=== PATIENT | female | born 1935 | race Caucasian/White ===

== ENCOUNTER 2016-12-14 14:44 | Emergency (ER) | payer OTHER ==
--- NOTE | ~2016-12-14 | CR169 ---
[facility] A Service [facility] RADIOLOGY TEXT RESULTS PATIENT: PÉRZE CROOK LOCATION: SED : 33 UNIT #: [id number] AGE: [address]: Timoteo Pak MD SEX: F ORDER DR: [id number] [place] [id number] E MR#: [id number] Acc #: [id number] NAME: PÉREZ CROOK : 1935 SEX: F STUDY DATE/TIME: 12/14/2016 14:52 UNIT: SED ROOM: STUDY DESCRIPTION: CR Knee 2 Views Lt Attending Physician: Timoteo Pak M.D. Ordering Physician: Timoteo Pak M.D. Primary Care Physician: Tian Newman D.O. MEDICAL IMAGING REPORT This report is preliminary unless electronic signature is present. EXAM Left knee. DATE OF EXAM 12/14/2016 HISTORY Knee pain and swelling beginning earlier this morning. COMPARISON STUDIES Comparison exam from 07/06/2016. TECHNIQUE 2 views of the knee were obtained. FINDINGS 2 views of the knee show small osteophytes along the medial joint line unchanged from the previous exam. There is no evidence of fracture or significant joint effusion. Since the previous examination, the patient has developed some lytic change in the medial femoral condyle with adjacent sclerosis that is more prominent than on the previous exam. Findings are worrisome for osteochondritis dissecans or avascular necrosis. I do not see any loose osteochondral fragments, but on the lateral view, there is some flattening of the articular surface of the medial femoral condyle at this location that was not present on this previous exam. 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 There is slight cortical flattening seen on the lateral view that is new and there is subcortical lucency that is new since the previous exam. This could be better evaluated with outpatient MRI. Also noted are generally mjkb-ah-zeclvnoi osteoarthritic changes [facility] A [facility] RADIOLOGY TEXT RESULTS PATIENT: PÉREZ CROOK LOCATION: SED : 33 UNIT #: [id number] AGE: [address]: Timoteo Pak MD SEX: F ORDER DR: predominately in the medial compartment and at the patellofemoral joint. Dictated by... Tian Bach M.D. THIS IS AN ELECTRONICALLY VERIFIED REPORT Tian Bach M.D. at 12/15/2016 8:20 AM BRE/sebastian TD: 12/14/2016 22:21 JOB #: [id number] MEDICAL IMAGING REPORT
[~2016-12-14 14:44] MED LIST: ACETAMINOPHEN PO; ADVAIR 2501 DISK W/D PO; ALLEGRA PO; ASPIRIN PO; ASPIRIN81 M2 PO; AVALIDE 300-12.1 TAB; BACTRIM DS TABL1 TA1 PO; BACTRIM DS TABL1 TA2 PO; BENAZEPRIL HCL40 MG PO; BENAZEPRIL HCTZ PO; BENAZEPRIL-HCTZ1 T18 PO; CADUET 5 MG-101 EACH PO; CADUET 5 MG/101 TAB PO; CALCIUM 500 + D1 TAB PO; CARAFATE1 G PO; CIPRO PO; COMBIVENT INH14.7 GM INH; DETROL LA PO; DITROPAN-XL5 M1 PO; DOC-Q-LACE100 MG PO; DULCOLAX5 MG PO; EC-NAPROSYN500 MG PO; FERROUS GL325 ( 36 ) PO; FISH OIL 1,0001 CAP PO; FLEXERIL PO; FLEXERIL10 MG PO; FOLIC ACID PO; GLUCOSAMINE; HYDROCHLOROTHIA25 MG PO; IMURAN50 MG PO; LEVAQUIN PO; LOPRESSOR; LOPRESSOR PO; LORTAB 5/500 TA1 TA2 PO; LOTENSIN HCT 201 TAB PO; LOTENSIN40 MG PO; METOPROLOL TAR25 MG PO; METOPROLOL/HCTZ PO; MIRALAX17 GM DOB; NAPROXEN PO; NAPROXEN SODIU220 M1 PO; NAPROXEN250 MG PO; NORCO 10-325 TA1 TAB PO; OMEGA 3 FISH OI1 CAP PO; OMEGA-31000 M1 PO; OXYBUTYNIN5 MG/BOTTL PO; PHENERGAN PO; PLAQUENIL200 MG PO; PREDNISONE PO; PRILOSEC PO; PROTONIX; PROTONIX PO; SYNTHROID125 PO; TOPROL XL 50 MG50 MG PO; TOPROL XL PO; TYLOX 5/500 CAP1 CAP PO; VICODIN 5/500 T1 TAB PO; VICODIN PO; VITAMIN D 4001 UDTAB PO; VITAMIN D1000 UNIT PO; VITAMIN D31000 UNIT PO; ZITHROMAX PO; ZOFRAN ODT4 MG PO; ZOFRAN ODT4 MG/UDTAB PO; [UNRECOGNIZED DRUG - OTHER]
== END 2016-12-14 15:54 | disposition home or self-care (01) ==
LOC: SED 14:44
DX: M87.852 Other osteonecrosis, left femur (principal); K21.9 Gastro-esophageal reflux disease without esophagitis; E78.5 Hyperlipidemia, unspecified; I10 Essential (primary) hypertension; Z90.710 Acquired absence of both cervix and uterus; Z87.891 Personal history of nicotine dependence; Z79.899 Other long term (current) drug therapy; Z88.5 Allergy status to narcotic agent
CPT/HCPCS: 73560; 96372; 99283; J1885

== ENCOUNTER 2017-04-16 20:22 | Inpatient (IN) | payer OTHER ==
[~2017-04-16] VITALS: Ht 165.1 cm; Wt 82.8 kg
--- NOTE | ~2017-04-16 | CR150 ---
[facility] A Service [facility] RADIOLOGY TEXT RESULTS PATIENT: PÉREZ CROOK LOCATION: [facility] : 33 UNIT #: [id number] AGE: [address]: Rosemarie Aldana MD SEX: F ORDER DR: [id number] [place] [id number] [place], [place] [address] [id number] I MR#: [id number] Acc #: [id number] NAME: PÉREZ CROOK. : 1935 SEX: F STUDY DATE/TIME: 04/16/2017 22:57 UNIT: [address] ROOM: [facility] STUDY DESCRIPTION: CR Hip Min 2 Views Lt Attending Physician: Rosemarie Aldana M.D. Ordering Physician: Steven Reveles D.O. Primary Care Physician: Tian Newman D.O. MEDICAL IMAGING REPORT This report is preliminary unless electronic signature is present EXAM Left hip series INDICATIONS Left hip pain after fall 1 week ago. PROCEDURE Frontal view of the pelvis lateral views left hip COMPARISON None FINDINGS No fracture or dislocation. Previous right hip replacement unremarkable. Soft tissue mineralization along the superolateral aspect of the left hip. IMPRESSION 1. Soft tissue mineralization along the superolateral aspect of the left hip, presumed chronic finding. There is no evidence for acute fracture or dislocation. 2. Unremarkable appearance of included portions of the right hip prosthesis. Dictated by... Nomi Casas M.D. THIS IS AN ELECTRONICALLY VERIFIED REPORT Nomi Casas M.D. at 04/17/2017 9:53 PM ROSID/samy TD: 04/17/2017 13:29 JOB #: [id number] [facility] A Service [facility] RADIOLOGY TEXT RESULTS PATIENT: PÉREZ CROOK LOCATION: [facility] : 33 UNIT #: [id number] AGE: [address]: Rosemarie Aldana MD SEX: F ORDER DR: MEDICAL IMAGING REPORT Page 1 of 1 COPY
--- NOTE | ~2017-04-16 | DS ---
Unit #: [id number] #: [id number] Patient: PÉREZ CROOK [id number] [address] [address] [id number] I MR#: [id number] NAME: PÉREZ CROOK. ROOM: 301 Age: 82 Sex: F Admission Date: 04/17/2017 : 1935 Discharge Date: Attending Physician: Rosemarie Aldana M.D. Primary Care Physician: Tian Newman D.O. DISCHARGE SUMMARY PRINCIPAL DIAGNOSES 1. Toxic metabolic encephalopathy, multifactorial. 2. Escherichia coli urinary tract infection. 3. Acute kidney injury on chronic kidney disease, stage 3. Baseline creatinine approximately 1.4. 4. Hypernatremia, now resolved. 5. Left renal lesion with pending CT scan. 6. Abnormal electrocardiogram with normal Cardiolite stress test. 7. Hypothyroidism, newly diagnosed. 8. Mild rhabdomyolysis. 9. Bilateral lower extremity wounds secondary to fall and subsequent deconditioning. 10. Hypertension. 11. Hyperlipidemia. 12. Hypophosphatemia. 13. Moderate protein malnutrition. 14. Dementia, likely vascular in origin, moderate. 15. Physical deconditioning. 16. Osteoporosis. CONSULTANTS 1. Dr. Schwab, Nephrology. 2. Dr. Bright, Urology. 3. Dr. Mcgraw, General Surgery. PROCEDURES 1. A two-dimensional echocardiogram on April 17, 2017 with grade 1 diastolic dysfunction. Ejection fraction not report. Valvular function (1) . 2. Chest x-ray on April 16, 2017 with no acute findings. 3. CT of the head without contrast on April 16, 2017 without acute findings. Mild generalized cerebral atrophy and generalized ventricular dilatation noted. Chronic ischemic changes in the deep white matter bilaterally. 4. X-ray of left hip on April 16, 2017 with mineralization along the superolateral aspect of the left hip. Right hip prosthesis noted. 5. Bilateral renal ultrasound on April 18, 2017 with severely hydronephrotic right kidney with dilated calices and dilated renal pelvis. This is stable since 2014. Severe cortical thinning of the right kidney noted. Left kidney is normal in size and cortical thickness. No evidence of hydronephrosis. Hypoechoic obstruction in the superior pole of the left kidney measuring 1.5 cm. 6. Cardiolite stress test which is negative for ischemia. Unit #: [id number] #: [id number] Patient: PÉREZ CROOK A CLINICAL HISTORY AND HOSPITAL COURSE Ms. Crook is an 82-year-old female brought to the emergency department by her neighbors after being found down at home and increasingly confused. In the emergency department, the patient underwent urinalysis concerning for urinary tract infection. She was also found to be in acute renal failure with a creatinine of 3.2. White blood cell count was also elevated at greater than 18,000. Patient was subsequently admitted. Ms. Crook was subsequently admitted and started on IV antibiotics for her urinary tract infection. Urine cultures have ultimately grown E. coli. Blood cultures have remained negative. She has been transitioned to oral antibiotics and completed a one-week course of therapy. In regard to patient's acute kidney injury, nephrotoxic medications were discontinued and patient was continued on IV fluids. Record review indicates a baseline creatinine of approximately 1.4. Dr. Schwab was consulted and continued management. On anticipated day of discharge this afternoon, creatinine is down to 1.4 and IV fluids have been discontinued. Will avoid nephrotoxic medications in the future. I am still awaiting voiding trial upon discontinuation of Mccarthy catheter. The patient was also found to be significantly hypernatremia upon presentation, likely due to the fact she had been down at home for several days. Admission sodium was 158, now sodium was down to 142. Oral water intake has been encouraged. The patient, as noted above, was significantly confused upon presentation. I think this is multifactorial including her urinary tract infection, her hypernatremia, and probably some underlying dementia. She is now awake, alert, answering questions and appropriate but still remains unoriented to time. According to her neighbor, she does have some difficulty with short-term memory at home that has been noted. I suspect patient is back at her baseline. Renal ultrasound while evaluating the patient's acute kidney injury did reveal left renal mass for which Dr. Bright was consulted. CT scan of the abdomen and pelvis is still currently pending, but assuming this does not appear to be a cancerous lesion, I anticipate no further workup. The patient did have an abnormal EKG upon presentation with significant ST segment depression. Cardiology was consulted and patient underwent Cardiolite stress test which is unremarkable. No further cardiac workup planned. The patient was found to have several wounds on her lower extremities with eschar likely secondary to her being down in the same position for a day or two. Surgery was consulted and local wound care only at this time. Anticipating, again if CT scan negative, I think patient can be discharged to rehab today. DISCHARGE CONDITION Stable. DISCHARGE STATUS Discharge to subacute rehab. Unit #: [id number] #: [id number] Patient: PÉREZ CROOK DISCHARGE MEDICATIONS 1. Zofran 4 mg p.o. q.4 hours p.r.n. for nausea and vomiting. 2. Tylenol 325 mg p.o. q.4 hours p.r.n. for pain. 3. Bactroban to wounds on the legs topically b.i.d. 4. Norvasc 5 mg p.o. daily. 5. Metoprolol tartrate 25 mg b.i.d. 6. Colace 100 mg p.o. b.i.d. p.r.n. constipation. 7. Omnicef 300 mg b.i.d. through April 23, 2017. 8. Ferrous gluconate 325 mg p.o. daily. 9. Santyl ointment topically b.i.d. to lower extremity wounds. 10. Aspirin 81 mg daily. 11. Phos-Nak packet 500 mg p.o. b.i.d. to stop after doses on April 21, 2017. 12. Levothyroxine 125 mcg p.o. daily. 13. Vitamin D 1000 units p.o. daily. DISCHARGE INSTRUCTIONS 1. The patient was instructed to follow a heart healthy diet. 2. She can increase her activity as tolerated. FOLLOWUP 1. The patient will follow up with Dr. Schwab in four to six weeks. 2. Followup with urology pending CT scan. 3. Patient is to follow up with her primary care provider, Dr. Tian Newman, upon discharge from rehab. Dictated by... Rosemarie Aldana M.D. [facility]/thaddeus TD: 04/20/2017 11:23 JOB #: [id number] DISCHARGE SUMMARY Page 1 of 1 X Rosemarie Aldana MD X DISCHARGE SUMMARY
--- NOTE | ~2017-04-16 | CR72 ---
[facility] A Service of [facility] RADIOLOGY TEXT RESULTS PATIENT: PÉREZ CROOK LOCATION: [facility] 301- : 33 UNIT #: [id number] AGE: [address]: Rosemarie Aldana MD SEX: F ORDER DR: [id number] [facility] [address] [facility]. [place], [place] [address] [id number] I MR#: [id number] Acc #: [id number] NAME: PÉREZ CROOK : 1935 SEX: F STUDY DATE/TIME: 04/16/2017 21:20 UNIT: [address] ROOM: [facility] STUDY DESCRIPTION: CR Chest Single View Portable Attending Physician: Rosemarie Aldana M.D. Ordering Physician: Steven Reveles D.O. Primary Care Physician: Tian Newman D.O. MEDICAL IMAGING REPORT This report is preliminary unless electronic signature is present EXAM Portable chest HISTORY Shortness of chest pain today. FINDINGS The cardiac size and pulmonary vascularity are normal. Mildly tortuous descending thoracic aorta. Mild pleural thickening in the lung apices. IMPRESSION No active disease Dictated by... Pedro Pierre M.D. THIS IS AN ELECTRONICALLY VERIFIED REPORT Pedro Pierre M.D. at 04/17/2017 2:23 PM CLAUDIO/samy TD: 04/17/2017 13:07 JOB #: [id number] MEDICAL IMAGING REPORT Page 1 of 1 COPY
--- NOTE | ~2017-04-16 | HP ---
Unit #: [id number] #: [id number] Patient: PÉREZ CROOK [id number] [address] [address] [id number] I MR#: [id number] NAME: PÉREZ CROOK. ROOM: 301 Age: 82 Sex: F Admission Date: 04/17/2017 : 1935 Attending Physician: Mariama Millan M.D. Primary Care Physician: Tian Newman D.O. HISTORY AND PHYSICAL CHIEF COMPLAINT Acute on chronic kidney disease, dehydration, urinary tract infection, hypernatremia. HISTORY This 82-year-old female with rheumatoid arthritis, hypothyroidism, hypertension, is admitted for dehydration. The patient was found by her neighbor down on the floor. It is uncertain how long the patient has been laying on the floor, as she does not recall what occurred. I am told that she was last seen normal by the neighbor about a week ago. She was brought to this emergency department where she has bruises, and abrasions. She was initially tachycardic. Labs are consistent with acute on chronic kidney injury with dehydration, hypernatremia. She is also found to have a UTI. In the ER she was boluses with a liter of saline, given a gram of Rocephin, and given water to drink. She herself is confused. PAST MEDICAL HISTORY 1. Previous history of hypothyroidism, per old records. 2. Hyperlipidemia. 3. Hypertension. 4. Rheumatoid arthritis. 5. Chronic lung disease. 6. Chronic kidney disease with a baseline creatinine of about 1.3. 7. Negative Cardiolite stress test with normal ejection fraction 2008. 8. EGD revealing a small hiatal hernia, diffuse gastritis and large ulcers, 07/2015. 9. Colonoscopy 06/2005 showing diverticular disease and internal hemorrhoids. 10. Right total hip replacement. 11. Total abdominal hysterectomy. ALLERGIES Codeine. HOME MEDICATIONS Uncertain. FAMILY HISTORY CAD and diabetes mellitus. SOCIAL HISTORY The patient lives alone. She smoked one pack per day of tobacco from age Unit #: [id number] #: [id number] Patient: PÉREZ CROOK 16 until about 15 years ago. Does not drink alcohol. She is originally from [facility] [place]. REVIEW OF SYSTEMS Difficult to obtain as patient is confused. PHYSICAL EXAMINATION GENERAL: Pleasantly confused, ill-appearing 82-year-old female currently in no acute distress. VITAL SIGNS: Temperature 96, pulse 126, respirations 24, blood pressure 120/76, O2 saturation was 98% on 4 L, currently is 92% on room air. HEENT: Eyes - PERRLA, extraocular muscles are intact. Pharynx - dry mucosal membranes. NECK: Supple without adenopathy or thyromegaly. CHEST: Diminished breath sounds but clear. CARDIAC: Tachy S1 and S2 without murmur. ABDOMEN: Bowel sounds are present. Patient is tender over the suprapubic region without rebound or guarding. No hepatosplenomegaly. EXTREMITIES: Without edema. Pedal pulses are present but diminished. Abrasions and bruising are noted with a round just below her right knee with early eschar formation. Bruising over the coccyx region, reddened, but no open areas. NEUROLOGIC: The patent is oriented to person only. Her cranial nerves are intact. She has equal strength throughout but is extremely weak on exam. Is unable to even turn over without help. DIAGNOSTIC STUDIES LABORATORY STUDIES: Hematocrit is 55, white blood count is 18.4, normal MCV and platelet count. SMA 12 - glucose 130, BUN 190, creatinine 3.2, up from a BUN of 20, creatinine 1.1 last year. Sodium 158, chloride 119, AST 80, ALT 79, alk phos 103, CPK 1400. Acetaminophen, salicylate, and alcohol levels are all negligible. Lactic acid is 2. Troponin 0.09. Urinalysis - positive leukocyte esterase, 5-10 red cells, innumerable white cells, 4+ bacteria, no squamous cells. CARDIOLOGY STUDIES: EKG - sinus tachycardia, rate 116. There is new T wave inversions noted inferiorly and laterally. APCs are noted. LVH. IMAGING STUDIES: Head CT - no acute disease. Chest x-ray - no acute disease. X-ray of the left hip no fracture. ASSESSMENT 1. Patient was found down. She is dehydrated with acute on chronic kidney disease and hypernatremia. Unknown time she was down. 2. Abnormal EKG. 3. Mild rhabdomyolysis. 4. UTI. 5. Wound noted below the right knee with early eschar. 6. Rheumatoid arthritis. 7. Chronic lung disease. 8. Likely some dementia. 9. Hyperlipidemia. 10. Hypertension. 11. History of hypothyroidism. 12. Poor data base. Patient herself is confused. Family is not present. Unit #: [id number] #: [id number] Patient: PÉREZ CROOK PLANS 1. Aggressive IV fluids. 2. Check TSH, B12, and repeat labs in the morning. 3. Serial cardiac enzymes, EKG, obtain echo. Start aspirin and low dose Lopressor. 4. [facility] to check right knee wound. 5. DVT prophylaxis. 6. Antibiotics pending urine culture. 7. When improved will need physical therapy to see to assess ambulation. 8. Better history when family arrives. Dictated by Mariama Millan M.D. AML/ts TD: 04/17/2017 05:59 JOB #: [id number] HISTORY AND PHYSICAL Page 1 of 1 X Mariama Millan MD X HISTORY AND PHYSICAL
--- NOTE | ~2017-04-16 | CO ---
Unit #: [id number] #: [id number] Patient: PÉREZ CROOK [id number] [address] [place], [place] [address] [id number] I MR#: [id number] NAME: PÉREZ CROOK. ROOM: 301 Age: 82 Sex: F Admission Date: 04/17/2017 : 1935 Attending Physician: Rosemarie Aldana M.D. Primary Care Physician: Tian Newman D.O. Consultation Date: 04/20/2017 CONSULTATION REPORT REASON FOR CONSULTATION Possible renal mass. HISTORY OF PRESENT ILLNESS This 82-year-old woman who was admitted after a fall and sustained multiple contusions of her extremities. She is noted to have chronic kidney disease and has been seen by Nephrology. On ultrasound, there is a question of a 15 mm mass in the upper pole of the left kidney. She was also treated for suspected urinary tract infection on admission. She is now improved and ready for transfer to rehab. She denies a history of urinary infections. She denies any urinary symptoms whatsoever. No history of kidney stones or gross hematuria. She has no flank pain. She was not knowledgeable of the status of her right kidney, which is completely atrophic on CT. PAST MEDICAL HISTORY Rheumatoid arthritis, chronic lung disease, chronic kidney disease, baseline creatinine 1.3, hyperlipidemia, hypertension, history of hypothyroidism. PAST SURGICAL HISTORY Right total hip arthroplasty, total abdominal hysterectomy. DISCHARGE MEDICATIONS Zofran, Tylenol, Bactroban, Norvasc, metoprolol, Colace, Omnicef, ferrous gluconate, Santyl, low-dose aspirin, Phos-Nak packet, levothyroxine, vitamin D. ALLERGIES Codeine. FAMILY HISTORY Noncontributory. SOCIAL HISTORY Stopped smoking 15 years ago after over 50 years of one pack per day. Does not drink alcohol. REVIEW OF SYSTEMS Thought unreliable due to confusion. PHYSICAL EXAMINATION GENERAL: The patient is sitting up with multiple abrasions. Awake, Unit #: [id number] #: [id number] Patient: PÉREZ CROOK alert, comfortable. Requesting discharge. ABDOMEN: Large, full, soft. No masses or tenderness appreciated. EXTREMITIES: Knee contusion, knee scars. NEUROLOGIC: Grossly intact. SKIN: [place]. HEENT: Unremarkable. LUNGS: Clear. CARDIAC: Rate and rhythm regular. DIAGNOSTIC STUDIES LABORATORY RESULTS: Include urinalysis, 1+ bacteria, 100 to 200 wbc's, 5 to 10 red cells. Urine culture, multisensitive including temazepam, sulfa, ampicillin, ceftriaxone, nitrofurantoin, creatinine improved from 2.4 to 1.4 baseline, BUN 49. IMAGING STUDIES: Renal ultrasound as noted suspicious for hypoechoic lesion in the upper pole of left kidney without flow by Doppler. This was not appreciated on CT scan from 07/16/2015. I have repeated a CT scan, and although the report is pending, it is similar to the one from 2015 and does not show the lesion suspected by ultrasound either. Note that there was a completely atrophic kidney consistent with longstanding right ureteropelvic junction obstruction. IMPRESSION Solitary left kidney. No evidence of renal mass on further inspection. The patient reassured. We will cancel initial office followup and see her again only on an as-needed basis. Thank you, Rosemarie, for the consultation. Dictated by... Tian Bright M.D. [facility]/abhinav TD: 04/21/2017 06:31 JOB #: [id number] CC: Rosemarie Aldana M.D. CONSULTATION REPORT Page 1 of 1 X Tian Bright MD X CONSULTATION REPORT
--- NOTE | ~2017-04-16 | CT7 ---
[facility] A Service [facility] RADIOLOGY TEXT RESULTS PATIENT: PÉREZ CROOK LOCATION: [facility] : 33 UNIT #: [id number] AGE: [address]: Rosemarie Aldana MD SEX: F ORDER DR: [id number] [place] [id number] [facility]. [place], [place] [address] [id number] I MR#: [id number] Acc #: [id number] NAME: PÉREZ CROOK. : 1935 SEX: F STUDY DATE/TIME: 04/20/2017 12:36 UNIT: [facility] PCU ROOM: [facility] STUDY DESCRIPTION: CT Abdomen Wo Cont Attending Physician: Rosemarie Aldana M.D. Ordering Physician: Socorro Schwab M.D. Primary Care Physician: Tian Newman D.O. MEDICAL IMAGING REPORT This report is preliminary unless electronic signature is present EXAM CT of the abdomen without contrast INDICATIONS Renal mass seen on recent ultrasound TECHNIQUE CT of the abdomen only was performed without contrast. Coronal and sagittal reformatted images were obtained. This CT exam was performed with one or more of the following radiation dose reduction techniques: automatic exposure control, adjustment of mA and/or kV according to patient size, and iterative reconstruction. COMPARISON STUDIES Comparison with renal ultrasound 04/18/[address] abdomen and pelvis from 07/16/2015. FINDINGS The lung bases are clear. Tiny hiatal hernia. The liver, gallbladder and spleen are unremarkable. The left kidney is unremarkable. 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 This is not significantly changed. There is no definite renal mass. The adrenal glands are unremarkable. The pancreas is unremarkable. The bone windows show degenerative changes of the lumbar spine. IMPRESSION 1. No definite renal mass. 2. Stable severe right hydronephrosis with cortical thinning most consistent with a right UPJ obstruction. [facility] A Service [facility] RADIOLOGY TEXT RESULTS PATIENT: PÉREZ CROOK LOCATION: [facility] : 33 UNIT #: [id number] AGE: [address]: Rosemarie Aldana MD SEX: F ORDER DR: Dictated by... Ramon Dean M.D. THIS IS AN ELECTRONICALLY VERIFIED REPORT Ramon Dean M.D. at 04/20/2017 3:51 PM Dante TD: 04/20/2017 15:25 JOB #: [id number] MEDICAL IMAGING REPORT Page 1 of 1 COPY
--- NOTE | ~2017-04-16 | TH ---
Unit #: [id number] #: [id number] Patient: PÉREZ CROOK [id number] [address] [place], [place] [address] [id number] I MR#: [id number] NAME: PÉREZ CROOK. : 1935 SEX: F STUDY DATE/TIME: 04/19/2017 UNIT: C3A PCU ROOM: 301 STUDY DESCRIPTION: Stress nuclear study Attending Physician: Rosemarie Aldana M.D. Primary Care Physician: Tian Newman D.O. CARDIOLOGY REPORT EXAM Stress nuclear and ECG combined. INDICATION Chest pain, syncope, inability to exercise adequately for the diagnosis of obstructive coronary disease. SUMMARY The patient was given Lexiscan intravenously while at rest as well as Tc-99m Cardiolite, 11.89 and 32.6 mCi, at rest and stress respectively. Appropriate views were obtained. FINDINGS The resting ECG is abnormal. There is 0.5 to [address] depression in leads II, III, aVF, V4 through V6 with upgoing T waves. With stress, there are single PVCs noted and a slight depression of the ST segments but not diagnostic past the resting depression. Heart rate increased from 67 to 90 and blood pressure decreased from 149/76 to 114/63. There was no chest pain. Planar images demonstrate no significant patient motion either at rest or stress. There is significant tissue attenuation at rest but not with stress. There is no significant lung uptake, LV or RV enlargement. End-diastolic is 70 mL, ejection fraction 65% with normal wall motion abnormality. Summed stress score is 4. Summed difference score is 3. Changes involve primarily border detection at the basal inferior wall. Perfusion images demonstrate slight rotation between rest and stress. There is diaphragmatic artifact but otherwise no significant changes between rest and stress. There is chest wall attenuation artifact mainly with rest and intestinal artifact mainly with stress. IMPRESSION 1. Myocardial perfusion scan shows no ischemia. Changes in in the inferior wall appear to be more related to diaphragmatic artifact. 2. Abnormal nondiagnostic stress ECG. 3. Normal LV size and ejection fraction. Dictated by... Kody Mistry M.D. PJRomina/bernabe Unit #: [id number] #: [id number] Patient: PÉREZ CROOK TD: 04/20/2017 13:15 JOB #: [id number] CARDIOLOGY REPORT Page 1 of 1 X Kody Mistry MD CARDIOLOGY REPORT
--- NOTE | ~2017-04-16 | US77 ---
[facility] A Service of [facility] RADIOLOGY TEXT RESULTS PATIENT: PÉREZ CROOK LOCATION: [facility] 301- : 33 UNIT #: [id number] AGE: [address]: Rosemarie Aldana MD SEX: F ORDER DR: [id number] [facility] [address] [facility]. [place], [place] [address] [id number] MR#: [id number] Acc #: [id number] NAME: PÉREZ CROOK. : 1935 SEX: F STUDY DATE/TIME: 04/18/2017 12:19 UNIT: C3A PCU ROOM: 301 STUDY DESCRIPTION: US Kidney Bilateral Complete Attending Physician: Rosemarie Aldana M.D. Ordering Physician: Rosemarie Aldana M.D. Primary Care Physician: Tian Newman D.O. MEDICAL IMAGING REPORT This report is preliminary unless electronic signature is present EXAM Complete bilateral renal ultrasound COMPARISON CT abdomen and pelvis dated July 16, 2016. INDICATIONS 82-year-old female with acute renal insufficiency. GFR of 21, creatinine of 2.1 and BUN of 133. FINDINGS The right kidney is noted to be severely hydronephrotic with marked diffuse cortical thinning on CT of July 2015. Large cystic structure is measured in the right upper quadrant of the abdomen and most likely represents the dilated renal pelvis and calyces. Urinary bladder is unremarkable. The left kidney appears normal, aside for a hypoechoic structure in the superior pole. The left kidney measures 10.3 cm in length and demonstrates normal cortical thickness. The hypoechoic structure in the superior pole measures 1.5 cm x 1.6 cm x 1.4 cm and was not definitely appreciated on CT of July 16, 2016. This does not have internal color flow. No associated shadowing mural calcifications are seen. IMPRESSION 1. Right kidney is severely hydronephrotic and is completely replaced by dilated calyces and a dilated renal pelvis, unchanged from July 16, 2015. There is marked severe cortical thinning and the right kidney is likely nonfunctional. This may represent a chronic ureteropelvic junction obstruction causing these findings in the right kidney. 2. The left kidney is normal in size and cortical thickness. There is no left hydronephrosis. A hypoechoic structure superior pole of the left kidney measuring up to 1.5 cm which does not have internal color flow. [facility] A Service of [facility] RADIOLOGY TEXT RESULTS PATIENT: PÉREZ CROOK LOCATION: [facility] 301-01 : 33 UNIT #: [id number] AGE: [address]: Rosemarie Aldana MD SEX: F ORDER DR: This is not definitely seen on noncontrast CT of July 16, 2015 and could possibly have been not visible due to lack of IV contrast. This may represent a proteinacious cyst. Consider followup ultrasound of the left kidney in [address] to document stability. CT abdomen with and without IV contrast could also be performed now, but this may not be prudent given the patient's renal function. Alternatively, MRI with and without IV contrast could be performed, if definitive characterization is now desired. Dictated by... Momo Dutta M.D. THIS IS AN ELECTRONICALLY VERIFIED REPORT Momo Dutta M.D. at 04/23/2017 10:28 PM SUKI/saige TD: 04/18/2017 21:17 JOB #: [id number] MEDICAL IMAGING REPORT Page 1 of 1 COPY
--- NOTE | ~2017-04-16 | EKG ---
PATIENT: PÉREZ CROOK UNIT #: [id number] Ventricular Rate: 64 BPM Atrial Rate: 64 BPM P-R Interval: 152 ms QRS Duration: 76 ms Q-T Interval: 462 ms QTC Calculation(Bezet): 476 ms P [place]: 78 degrees Calculated R [place]: 69 degrees Calculated T [place]: -97 degrees Diagnosis Line: Normal sinus rhythm Diagnosis Line: ST and T wave abnormality, consider inferior Diagnosis Line: ischemia Diagnosis Line: ST and T wave abnormality, consider anterolateral Diagnosis Line: ischemia Diagnosis Line: Prolonged QT Diagnosis Line: Abnormal ECG Diagnosis Line: When compared with ECG of 16-APR-2017 20:55, Diagnosis Line: Premature atrial complexes are no longer Present Diagnosis Line: Vent. rate has decreased BY 52 BPM Diagnosis Line: ST no longer depressed in Inferior leads Diagnosis Line: ST no longer depressed in Anterior leads Diagnosis Line: Confirmed by NETTIE MANRIQUE MD ([id number]) on Diagnosis Line: 04/20/2017 7:27:05 AM INTERPRETING MD: BURTON LIRIANO
--- NOTE | ~2017-04-16 | CO ---
Unit #: [id number] #: [id number] Patient: PÉREZ CROOK [id number] [address] [place], [place] [address] [id number] I MR#: [id number] NAME: PÉREZ CROOK. ROOM: 301 Age: 82 Sex: F Admission Date: 04/17/2017 : 1935 Attending Physician: Rosemarie Aldana M.D. Primary Care Physician: Tian Newman D.O. Consultation Date: 04/18/2017 CONSULTATION REPORT REASON FOR CONSULTATION Abnormal EKG. HISTORY OF PRESENT ILLNESS The patient is an 82-year-old female who does not have a supervisor color making here. She states she has never had a myocardial infarction. Back in November of 2008, she had an adenosine Cardiolite stress test which showed no ischemia and EF of 60%, and a 2D echocardiogram that showed impaired relaxation. Additional past medical history includes hypertension, hyperlipidemia, rheumatoid arthritis, hypothyroidism, chronic lung disease, chronic kidney disease and she is a reformed smoker. The patient was apparently found down by her neighbor on the floor. It is uncertain how long the patient had been laying on the floor and the patient does not recall the events that occurred. At the time of my evaluation, the patient is oriented times person but she is confused as to the events that brought her into the hospital. She denies any complaints of shortness of breath or chest pain. She denies any nausea, vomiting, fever or chills. In the emergency department, laboratory results are consistent with acute on chronic kidney injury with dehydration and hypernatremia. She was also found to have a urinary tract infection. She was given normal saline liter bolus and a gram of IV Rocephin. Troponin was found to be 0.09. EKG shows normal sinus rhythm with ST and T wave abnormalities in the inferior and anterolateral leads. PAST MEDICAL HISTORY 1. November 2008 adenosine Cardiolite stress test shows no ischemia with an EF of 60%. 2. November 2008 echo shows impaired LV relaxation. 3. Hypertension. 4. Hyperlipidemia. 5. Osteoarthritis. 6. Hypothyroidism. 7. Chronic lung disease. 8. Chronic kidney disease. PAST SURGICAL HISTORY 1. EGD in July 2015, shows small hiatal hernia, diffuse gastritis and large ulcers. 2. Colonoscopy in June 2005 shows diverticular disease and internal hemorrhoids. 3. Right total hip replacement. Unit #: [id number] #: [id number] Patient: PÉREZ CROOK 4. Hysterectomy. ALLERGIES Codeine. HOME MEDICATIONS Unknown at this time. FAMILY HISTORY Per the H and P, the patient has a family history of coronary artery disease and diabetes. SOCIAL HISTORY The patient lives alone and is a reformed smoker. She does not drink alcohol. She is originally from [facility]. REVIEW OF SYSTEMS A ten point review of systems was attempted. However, due to the patient's current mental status, I was unable to complete a full twelve point review of systems. Again, patient denied any nausea, vomiting, fever, chills, chest pain or shortness of air. PHYSICAL EXAMINATION GENERAL: The patient is awake, in no acute distress. VITAL SIGNS: Temperature 97.5, heart rate 74, respirations 16, blood pressure 134/62. She is oxygenating 97%. HEENT: Head is atraumatic, normocephalic. Pupils are equal, round and reactive. Extraocular movements are intact. No discharge from ears or nares. NECK: Supple. Trachea is midline. No thyromegaly or lymphadenopathy appreciated. Normal carotid upstrokes. CHEST: Lungs are diminished. No wheezes, rales or rhonchi. CARDIOVASCULAR: S1, S2. Regular rate and rhythm. No murmurs, rubs or gallops appreciated. ABDOMEN: Soft, nontender, nondistended. Bowel sounds are positive in all four quadrants. No hepatosplenomegaly is appreciated. EXTREMITIES: No clubbing, edema or cyanosis. SKIN: Warm, dry. She does have some bruising noted over her coccyx region and around her right knee. NEUROLOGIC: The patient is oriented to person only. She is pleasant and conversant. DIAGNOSTIC STUDIES CARDIOVASCULAR: EKG shows sinus tachycardia with T wave inversions in the inferior lateral leads. IMAGING: CT scan of the head showed no acute disease. Chest x-ray showed nothing acute. X-ray of the left hip showed no fracture. LABORATORY: White blood cells 9.7, hemoglobin 12.9, hematocrit 40.6, platelets 202, sodium 144, potassium 3.2, chloride 114, CO2 22, BUN 133, creatinine 2.1, glucose 94, magnesium 2.6, troponin 0.09. ASSESSMENT 1. Abnormal EKG. Unit #: [id number] #: [id number] Patient: PÉREZ CROOK 2. Toxic metabolic encephalopathy. 3. Urinary tract infection. 4. Mild rhabdomyolysis. 5. Hypertension. 6. Hyperlipidemia. 7. Normal stress test in 2008. 8. Acute on chronic kidney disease. 9. Likely dementia. 10. Reformed tobaccoism. PLAN At this time, will trend cardiac enzymes q.6 hours x2 and obtain a 2D echocardiogram regarding the abnormal EKG and evaluate her ejection fraction. Will do a BMP, mag and lipid panel in the morning. Will have Dr. Mistry review patient's EKGs to see if patient needs further workup. Dictated by... Leslie Shah A.P.R.N. for Kody Mistry M.D. AM/liz TD: 04/18/2017 11:39 JOB #: [id number] CONSULTATION REPORT Page 1 of 1 X Leslie Shah APRN X CONSULTATION REPORT
--- NOTE | ~2017-04-16 | EKG ---
PATIENT: PÉREZ CROOK UNIT #: [id number] Ventricular Rate: 116 BPM Atrial Rate: 116 BPM P-R Interval: 128 ms QRS Duration: 80 ms Q-T Interval: 352 ms QTC Calculation(Bezet): 489 ms P [place]: 29 degrees Calculated R [place]: 58 degrees Calculated T [place]: -116 degrees Diagnosis Line: Sinus tachycardia with Premature atrial complexes Diagnosis Line: Left ventricular hypertrophy with repolarization Diagnosis Line: abnormality Diagnosis Line: Abnormal ECG Diagnosis Line: No previous ECGs available Diagnosis Line: Confirmed by NETTIE MANRIQUE MD ([id number]) on Diagnosis Line: 04/17/2017 3:52:31 PM INTERPRETING MD: BURTON LIRIAON
--- NOTE | ~2017-04-16 | DS ---
Unit #: [id number] #: [id number] Patient: PÉREZ CROOK [id number] [address] [address] [id number] I MR#: [id number] NAME: PÉREZ CROOK ROOM: 301 Age: 82 Sex: F Admission Date: 04/17/2017 : 1935 Discharge Date: 04/20/2017 Attending Physician: Rosemarie Aldana M.D. Primary Care Physician: Tian Newman D.O. DISCHARGE SUMMARY ADDENDUM PROCEDURES (addition) CT scan of abdomen and pelvis which did not reveal any renal mass. 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 HOSPITAL COURSE CT scan was reviewed and is negative for mass. No further workup necessary. I have discussed patient's clinical condition with her son who is agreeable to rehab. Plan is for patient to be discharged to rehab and then ultimately for her to reside with her daughter in [place], [place], if situation permits. I will note son confirms patient does have some dementia. It has been progressive over the last two to three years. The patient will be discharged to rehab today. Discharge meds are as previously dictated. Dictated by... Rosemarie Aldana M.D. CARMENCITA/bernabe TD: 04/20/2017 14:10 JOB #: [id number] DISCHARGE SUMMARY Page 1 of 1 X Rosemarie Aldana MD X DISCHARGE SUMMARY
--- NOTE | ~2017-04-16 | ST ---
Unit #: [id number] #: [id number] Patient: PÉREZ CROOK [id number] [address] [address] [id number] I MR#: [id number] NAME: PÉREZ CROOK : 1935 SEX: F STUDY DATE/TIME: 04/19/2017 UNIT: C3A PCU ROOM: 301 STUDY DESCRIPTION: Stress test Attending Physician: Rosemarie Aldana M.D. Primary Care Physician: Tian Newman D.O. CARDIOLOGY REPORT EXAM Stress test. FINDINGS Result text under nuclear order number. Please see this order for result text. Dictated by... Richie Gross/bernabe TD: 04/20/2017 13:26 JOB #: [id number] CARDIOLOGY REPORT Page 1 of 1 X Kody Mistry MD CARDIOLOGY REPORT
--- NOTE | ~2017-04-16 | CT71 ---
[facility] A Service [facility] RADIOLOGY TEXT RESULTS PATIENT: PÉREZ CROOK LOCATION: [facility] : 31 UNIT #: [id number] AGE: [address]: Rosemarie Aldana MD SEX: F ORDER DR: [id number] [facility] [address] [facility]. [place], [place] [address] [id number] I MR#: [id number] Acc #: [id number] NAME: PÉREZ CROOK : 1935 SEX: F STUDY DATE/TIME: 04/16/2017 21:50 UNIT: C3A PCU ROOM: [address] [place] [address] DESCRIPTION: CT Head Wo Contrast Attending Physician: Rosemarie Aldana M.D. Ordering Physician: Steven Reveles D.O. Primary Care Physician: Tian Newman D.O. MEDICAL IMAGING REPORT This report is preliminary unless electronic signature is present REVISED REPORT EXAM CT brain without contrast. HISTORY Headache today. Fell today. TECHNIQUE This CT exam was performed with one or more of the following radiation dose reduction techniques: automatic exposure control, adjustment of mA and/or kV according to patient size, and iterative reconstruction. FINDINGS CT brain without contrast demonstrates no intracranial hemorrhage, mass or edema. No midline shift or focal atrophy or extraaxial fluid collection. Mild generalized cerebral atrophy and mild compensatory generalized ventricular dilatation. There are also mild chronic ischemic changes in the deep white matter bilaterally. IMPRESSION No acute findings. Dictated by... Pedro Pierre M.D. THIS IS AN ELECTRONICALLY VERIFIED REPORT Pedro Pierre M.D. at 04/17/2017 2:23 PM DFL/sarah TD: 04/17/2017 13:17 JOB #: [id number] CC: Francesco/invision Please Delete [facility] A Service [facility] RADIOLOGY TEXT RESULTS PATIENT: PÉREZ CROOK LOCATION: [facility] : 31 UNIT #: [id number] AGE: [address]: Rosemarie Aldana MD SEX: F ORDER DR: MEDICAL IMAGING REPORT Page 1 of 1 COPY
--- NOTE | ~2017-04-16 | CO ---
Unit #: [id number] #: [id number] Patient: PÉREZ CROOK [id number] [facility]. [address] [place], [place] [address] [id number] I MR#: [id number] NAME: PÉREZ CROOK. ROOM: 301 Age: 82 Sex: F Admission Date: 04/17/2017 : 1935 Attending Physician: Rosemarie Aldana M.D. Primary Care Physician: Tian Newman D.O. Consultation Date: 04/18/2017 CONSULTATION REPORT REASON FOR CONSULTATION Renal insufficiency. Thank you very much for asking me to see this patient in consultation. HISTORY OF PRESENT ILLNESS Ms. Pérez Crook is an 82-year-old white female, who presented to the hospital here on 04/17/2017, apparently being found down at home of unknown reason, unknown length, presented to the emergency room, noted to have an increased BUN and creatinine of 190 and 3.2 with CPK of 1399 and sodium of 158. She was started on IV fluids. Today, her BUN and creatinine are down to 133 and 2.1, it was noted that sodium down to 144, and I was asked to see the patient. The patient currently is arousable, but she is confused. She is complaining of back pain only. She denies any chest pain or shortness of breath. She denies taking any nonsteroidals and again she is confused. The rest of her history is from the chart and other notes. PAST MEDICAL HISTORY History of rheumatoid arthritis, history of hypothyroidism, history of hypertension, history of chronic lung disease, history of hyperlipidemia, history of gastritis and ulcers in 2014, history of right hip replacement, history of total abdominal hysterectomy, history of degenerative disk disease. ALLERGIES Her allergies include codeine. SOCIAL HISTORY Long positive smoking. No alcohol. MEDICATIONS At home include benazepril and hydrochlorothiazide, Toprol, Protonix, FeSO4, [place], Zofran, Carafate, and Synthroid aspirin, Rocephin, Lopressor, Zocor, and subcu heparin. REVIEW OF SYSTEMS As mentioned in HPI. Really unable to obtain any. FAMILY HISTORY Unable to obtain. PHYSICAL EXAMINATION GENERAL: She is arousable, but somnolent and confused. Unit #: [id number] #: [id number] Patient: PÉREZ CROOK VITAL SIGNS: T-max 98.0, pulse is 63 to 75, blood pressure 108 to 158 over 50s to 80s, HEENT: She is normocephalic and atraumatic. Pupils are equal, round, and reactive to light. Extraocular muscles are intact. Mouth is dry. No erythema. No exudate. NECK: Supple. No adenopathy. CARDIAC: Regular rate and rhythm without a rub. No S3 or S4. LUNGS: Sound fairly clear bilaterally. No wheezes, rhonchi, or rales. ABDOMEN: Overweight, bowel sounds positive, some mild diffuse tenderness. No rebound or guarding. EXTREMITIES: She has no lower extremity swelling. SKIN: No rashes. NEURO: She is able to move all extremities, but confused. : She has a diaper on. DIAGNOSTIC STUDIES LABORATORY RESULTS: Upon admission, she has a sodium of 158, potassium 3.7, chloride is 119, bicarb 26, BUN of 190,creatinine 3.2, glucose of 130, CPK of 1399. UA shows specific gravity of 1.018, 1+ protein, 5 to 10 rbc's, too numerous to count wbc's, 4+ bacteria. Blood cultures and urine cultures are pending. Her laboratory data today showed a sodium of 144, potassium is 3.2, chloride is 114, bicarb 22, BUN is down to 133, creatinine 2.1, glucose 94. Albumin 3.9. CPK is down to 368. TSH is 17.53, calcium is 8.1. On 02/16/2016 creatinine was 1.1. On 01/05/2016 creatinine was 1.5. Over the last 5 years, the creatinine is ranging between 1.1 and 2.3 in the chart. IMAGING STUDIES: Chest x-ray was negative. CT of the head was negative. ASSESSMENT/PLAN 1. Acute kidney injury. This is a lady who has an increased BUN and creatinine. With certainly BUN out of proportion to creatinine and certainly it could be all related to volume depletion on top of the JOSE RAMON inhibitor and diuretic. Certainly, I agree with continued IV fluids. She also may have some underlying chronic kidney disease as well with intermittent increased creatinine over the last several years. She did have some hematuria as well as some mild proteinuria, although she does also appear to have urinary tract infection. I agree with checking urine eosinophils. We will check a random urine protein to creatinine, due to the hematuria and some interstitial lung disease. Although, I doubt if she has ANCA related disease. I would like to check serum protein immunofixation as well as check an anti-GBM. Check serum complement C3 and C4. Check JUMANA as well as check serum protein immunofixation. Hopefully with some fluids her renal function will continue to improve. She did have rhabdomyolysis when she came in, although I do not think that is the cause of her kidney failure. Since the level has not been that significantly elevated. The patient has a renal ultrasound that was ordered and a Mccarthy catheter has been ordered and has not been placed yet. 2. Urinary tract infection, await cultures on Rocephin. 3. Hypothyroidism per primary. 4. Rheumatoid arthritis. 5. History of hypertension. I agree with holding JOSE RAMON inhibitor and hydrochlorothiazide for now and avoid angiotensin receptor blockers for now as well. 6. Hypernatremia. The patient appears to have probably of hypovolemic as well as free water deficit sodium is improving with fluids. We will check urine osmolality as well as urine sodium. We will follow. Unit #: [id number] #: [id number] Patient: PÉREZ CROOK Dictated by.Richie Blanco/abhinav TD: 04/19/2017 04:03 JOB #: [id number] CONSULTATION REPORT Page 1 of 1 X Qi Schwab MD X CONSULTATION REPORT
[2017-04-16 22:31] LABS: URINE SOURCE CLEAN CATCH
[2017-04-16 22:37] LABS: BASOPHIL# 0.1 X10e3 (0-0.3); BASOPHIL% 0.6 % (0-2.5); DIFF IND YES; EOSINOPHIL% 0.1 % (0.0-7.0); HEMATOCRIT 54.9 % (35.0-45.0); HEMOGLOBIN 17.5 gm/dL (12.0-16.0); LYMPHOCYTE# 1.5 X10e3 (1.0-3.5); LYMPHOCYTE% 7.9 % (17.0-45.0); MEAN CELL VOLUME 88.6 FL (83-96); MEAN CORPUSCULAR HEMOGLOBIN 28.2 PG (28-34); MEAN CORPUSCULAR HGB CONC 31.9 g/dL (30-36); MEAN PLATELET VOLUME 10.2 FL (6.5-11.5); MONOCYTE# 1.2 X10e3 (0-1.0); MONOCYTE% 6.8 % (3.0-12.0); NEUTROPHIL# 15.6 X10e3 (1.5-7.1); NEUTROPHIL% 84.6 % (40-75); PLATELET COUNT 281 X10e3 (140-420); RED CELL DISTRIBUTION WIDTH 13.9 % (11.0-15.5); WHITE BLOOD COUNT 18.4 X10e3 (4.0-10.5)
[2017-04-16 22:40] LABS: CULTURE INDICATED? YES; URINE BACTERIA AUWI 4+ (NEGATIVE); URINE SQUAMOUS EPITHELIAL CELL NONE SEEN /[HPF]; UWBCS1 AUWI INNUM (0-5)
[2017-04-16 22:43] LABS: URINE APPEARANCE CLOUDY; URINE COLOR YELLOW
[2017-04-16 22:44] LABS: URINE SPECIFIC GRAVITY 1.018 (1.003-1.035)
[2017-04-16 22:45] LABS: URINE GLUCOSE NEG (NEG); URINE KETONE NEG (NEG); URINE LEUKOCYTE ESTERASE 3+ (NEG); URINE NITRATE NEG (NEG); URINE PROTEIN 1+ (NEG)
[2017-04-16 22:46] LABS: URINE BILIRUBIN NEG (NEG); URINE BLOOD 2+ (NEG)
[2017-04-16 22:47] LABS: INR 1.1; PARTIAL THROMBOPLASTIN TIME 20.8 SECONDS (23.5-31.3); PROTHROMBIN TIME (PATIENT) 11.7 SECONDS (10.0-11.7)
[2017-04-16 22:58] LABS: ANISOCYTOSIS SL; PLATELET ESTIMATE NORMAL (NORMAL)
[2017-04-16 23:22] LABS: ACETAMINOPHEN <10 ug/mL; ALBUMIN SERUM 3.6 g/dL (3.5-5.0); ALCOHOL BLOOD <5 mg/dL (0); ALKALINE PHOSPHATASE 103 U/L (32-92); ALT (SGPT) 79 U/L (10-40); AST (SGOT) 80 U/L (10-42); BILIRUBIN, DIRECT 0.3 mg/dL (0.0-0.2); BILIRUBIN,INDIRECT 0.5 mg/dL (0.0-0.9); BILIRUBIN,TOTAL 0.8 mg/dL (0.2-2.0); BLOOD UREA NITROGEN 190 mg/dL (9-23); BUN/CREATININE RATIO 59.37; CALCIUM SERUM 9.6 mg/dL (8.4-10.2); CARBON DIOXIDE 26 mmol/L (22-31); CHLORIDE 119 mmol/L (100-111); CREATININE SERUM 3.2 mg/dL (0.6-1.4); GLOM FILT RATE Estimated 12.7 mL/min (>60); GLUCOSE FASTING 130 mg/dL (70-110); POTASSIUM 3.7 mmol/L (3.5-5.1); PROTEIN TOTAL SERUM 7.8 g/dL (6.0-8.3); SALICYLATE <4.0 mg/dL; SODIUM 158 mmol/L (135-145)
[2017-04-17 00:37] LABS: POC - CKMB 68.2 ng/mL (0.0-7.9); POC - TROPONIN 0.09 ng/mL (<=0.05)
[2017-04-17 14:08] LABS: BASOPHIL# 0.1 X10e3 (0-0.3); BASOPHIL% 0.7 % (0-2.5); EOSINOPHIL# 0.2 X10e3 (0-0.7); EOSINOPHIL% 1.3 % (0.0-7.0); HEMATOCRIT 47.6 % (35.0-45.0); LYMPHOCYTE# 1.8 X10e3 (1.0-3.5); LYMPHOCYTE% 14.8 % (17.0-45.0); MEAN CELL VOLUME 88.8 FL (83-96); MEAN CORPUSCULAR HEMOGLOBIN 28.4 PG (28-34); MEAN PLATELET VOLUME 10.4 FL (6.5-11.5); MONOCYTE# 0.9 X10e3 (0-1.0); MONOCYTE% 7.4 % (3.0-12.0); NEUTROPHIL# 9.3 X10e3 (1.5-7.1); NEUTROPHIL% 75.8 % (40-75); PLATELET COUNT 231 X10e3 (140-420); RED BLOOD COUNT 5.36 X10e (3.90-5.30); RED CELL DISTRIBUTION WIDTH 14.1 % (11.0-15.5); WHITE BLOOD COUNT 12.3 X10e3 (4.0-10.5)
[2017-04-17 14:10] LABS: DIFF IND NO; HEMOGLOBIN 15.2 gm/dL (12.0-16.0)
[2017-04-17 14:59] LABS: ALBUMIN SERUM 2.9 g/dL (3.5-5.0); BILIRUBIN,TOTAL 0.9 mg/dL (0.2-2.0); BUN/CREATININE RATIO 64.58; CALCIUM SERUM 8.6 mg/dL (8.4-10.2); CREATININE SERUM 2.4 mg/dL (0.6-1.4); GLOM FILT RATE Estimated 17.9 mL/min (>60); POTASSIUM 3.7 mmol/L (3.5-5.1); PROTEIN TOTAL SERUM 5.9 g/dL (6.0-8.3)
[2017-04-17 15:18] LABS: %MB 3.5 % (0.0-4.0)
[2017-04-17 15:37] LABS: FOLATE (FOLIC ACID) 23.1 ng/mL (>5.8)
[2017-04-18 05:15] LABS: HEMATOCRIT 40.6 % (35.0-45.0); MEAN CELL VOLUME 88.8 FL (83-96); MEAN CORPUSCULAR HEMOGLOBIN 28.1 PG (28-34); MEAN CORPUSCULAR HGB CONC 31.7 g/dL (30-36); MEAN PLATELET VOLUME 10.8 FL (6.5-11.5); RED BLOOD COUNT 4.58 X10e (3.90-5.30); WHITE BLOOD COUNT 9.7 X10e3 (4.0-10.5)
[2017-04-18 05:20] LABS: HEMOGLOBIN 12.9 gm/dL (12.0-16.0)
[2017-04-18 06:10] LABS: CALCIUM SERUM 8.1 mg/dL (8.4-10.2); CREATININE SERUM 2.1 mg/dL (0.6-1.4); GLOM FILT RATE Estimated 21.1 mL/min (>60); MAGNESIUM 2.6 mg/dL (1.6-3.0); PHOSPHOROUS 3.6 mg/dL (2.5-4.6); POTASSIUM 3.2 mmol/L (3.5-5.1)
[2017-04-18 06:12] LABS: BUN/CREATININE RATIO 63.33
[2017-04-18 15:22] LABS: FREE T3 2.2 pg/mL (2.5-3.9)
[2017-04-18 15:23] LABS: FREE THYROXIN (T4) 0.76 ng/dL (0.58-1.64)
[2017-04-18 15:35] LABS: MB 14.6 ng/ml
[2017-04-18 18:29] LABS: OSMOLALITY,URINE 329 mOsmo/kg (250-900)
[2017-04-18 18:42] LABS: SODIUM URINE RANDOM 20 mmol/L; TOTAL PROTEIN,RANDOM URINE <10 mg/dl (<10)
[2017-04-18 18:48] LABS: CREATININE,RANDOM URINE 40 mg/dL
[2017-04-18 20:13] LABS: MB 13.5 ng/ml
[2017-04-19 07:49] LABS: ALBUMIN SERUM 2.5 g/dL (3.5-5.0); BILIRUBIN,TOTAL 0.6 mg/dL (0.2-2.0); BUN/CREATININE RATIO 48.82; CALCIUM SERUM 8.3 mg/dL (8.4-10.2); CREATININE SERUM 1.7 mg/dL (0.6-1.4); GLOM FILT RATE Estimated 27.2 mL/min (>60); MAGNESIUM 2.5 mg/dL (1.6-3.0); PHOSPHOROUS 2.6 mg/dL (2.5-4.6); POTASSIUM 4.1 mmol/L (3.5-5.1)
[2017-04-20 07:27] LABS: CALCIUM SERUM 8.2 mg/dL (8.4-10.2); CREATININE SERUM 1.4 mg/dL (0.6-1.4); GLOM FILT RATE Estimated 34.4 mL/min (>60); PHOSPHOROUS 1.8 mg/dL (2.5-4.6); POTASSIUM 3.9 mmol/L (3.5-5.1)
[2017-04-21 16:31] LABS: COMPLEMENT C3 106 mg/dL (90-180); COMPLEMENT C4 28 mg/dL (16-47)
[2017-04-23 03:36] LABS: SPE A1GLOB (PNL) 0.4 g/dL (0.2-0.3); SPE A2GLOB (PNL) 0.7 g/dL (0.5-0.9); SPE ALB (PNL) 2.7 g/dL (3.8-4.8); SPE BETA 1 GLOBULIN 0.4 g/dL (0.4-0.6); SPE BETA 2 GLOBULIN 0.3 g/dL (0.2-0.5); SPE GAMMA (PNL) 0.7 g/dL (0.8-1.7); SPETP (PNL) 5.1 g/dL (6.1-8.1)
[2017-04-25 14:43] LABS: ANA SCREEN Negative (Negative); MYELOPEROXIDASE AB (PNL) <1.0 AI (<1.0); PROTEINASE-3 AB (PNL) <1.0 AI (<1.0)
== END 2017-04-20 18:00 | DRG 682 ==
LOC: CED 20:22 → CEDOF 04-17 00:37 → C3A PCU 04-17 03:52
PROVIDERS: Emergency Medicine; Internal Medicine; Internal Medicine Nephrology
DX: N17.9 Acute kidney failure, unspecified (principal); G92 Toxic encephalopathy; E87.0 Hyperosmolality and hypernatremia; E44.0 Moderate protein-calorie malnutrition; M62.82 Rhabdomyolysis; Q60.0 Renal agenesis, unilateral; E83.39 Other disorders of phosphorus metabolism; N39.0 Urinary tract infection, site not specified; J98.4 Other disorders of lung; I12.9 Hypertensive chronic kidney disease with stage 1 through stage 4 chronic kidney disease, or unspecified chronic kidney disease; E86.0 Dehydration; M06.9 Rheumatoid arthritis, unspecified; E03.9 Hypothyroidism, unspecified; Z96.641 Presence of right artificial hip joint; Z90.710 Acquired absence of both cervix and uterus; R94.31 Abnormal electrocardiogram [ECG] [EKG]; E78.5 Hyperlipidemia, unspecified; Z87.891 Personal history of nicotine dependence; Z79.82 Long term (current) use of aspirin; T14.8 Other injury of unspecified body region; W19.XXXA Unspecified fall, initial encounter; B96.20 Unspecified Escherichia coli [E. coli] as the cause of diseases classified elsewhere; N18.3 Chronic kidney disease, stage 3 (moderate); N13.0 Hydronephrosis with ureteropelvic junction obstruction; M81.0 Age-related osteoporosis without current pathological fracture; F01.50 Vascular dementia, unspecified severity, without behavioral disturbance, psychotic disturbance, mood disturbance, and anxiety
CPT/HCPCS: 36415; 70450; 71010; 73502; 74150; 76770; 78452; 80048; 80053; 80061; 80076; 81003; 82550; 82553; 82570; 82607; 82746; 82947; 83605; 83735; 83935; 84100; 84156; 84165; 84300; 84439; 84443; 84481; 84484; 85025; 85027; 85610; 85730; 86021; 86038; 86039; 86160; 86334; 87040; 87086; 87186; 89190; 93005; 93017; 93306; 96360; 97110; 97116; 97163; 97166; 97530; 97535; 99285; A9500; G0480; G8978-GO; G8978-GP; G8979-GO; G8979-GP; G8980-GP; G8987-GO; G8988-GO; J0696; J1644; J1650; J2405; J2785